=== PATIENT | male | born 1990 | race African-American/Black ===

== ENCOUNTER 2016-08-28 23:09 | Emergency (ER) | payer SELFPAY ==
[~2016-08-28] VITALS: Ht 170.2 cm; Wt 88.0 kg
[2016-08-29 00:03] VITALS: BP 141/74
== END 2016-08-29 08:36 | disposition left against medical advice (07) ==
LOC: ER 08-29 08:36
DX: R51 Headache (principal); Z53.21 Procedure and treatment not carried out due to patient leaving prior to being seen by health care provider

== ENCOUNTER 2016-09-20 21:53 | Emergency (ER) | payer SELFPAY ==
[~2016-09-20] VITALS: Ht 170.2 cm; Wt 87.0 kg
== END 2016-09-21 00:40 | disposition left against medical advice (07) ==
LOC: ER 21:53
DX: Z53.21 Procedure and treatment not carried out due to patient leaving prior to being seen by health care provider (principal)

== ENCOUNTER 2016-09-24 01:27 | Emergency (ER) | payer SELFPAY ==
[~2016-09-24] VITALS: Ht 170.2 cm; Wt 61.0 kg
[2016-09-24 01:39] VITALS: BP 134/64
== END 2016-09-24 04:33 | disposition left against medical advice (07) ==
LOC: ER 04:30
DX: Z04.3 Encounter for examination and observation following other accident (principal); Z53.21 Procedure and treatment not carried out due to patient leaving prior to being seen by health care provider
CPT/HCPCS: J7030

== ENCOUNTER 2016-09-24 05:27 | Emergency (ER) | payer MEDICAID ==
[~2016-09-24] VITALS: Ht 170.2 cm; Wt 84.0 kg
[2016-09-24] MEDS ORDERED: ONDANSETRON HCL 4MG/2ML VIAL IV STA (06:09)
[2016-09-24] MEDS ORDERED: MORPHINE SULFATE 4 MG/ML CPJ (NOT FOR IM USE) IV STA (06:09)
[2016-09-24] MEDS ORDERED: SODIUM CHLORIDE 0.9% 1,000 ML IV ONE (06:09)
[2016-09-24 06:25] LABS: BASOPHILS % 0.6 % (0.0-2.0); EOSINOPHILS % 1.3 % (0.0-5.0); HEMATOCRIT. 41.2 % (42.0-52.0); HEMOGLOBIN. 14.1 g/dL (14.0-18.0); LYMPHOCYTES % 27.3 % (20.0-50.0); MEAN CORPUSCULAR HEMOGLOBIN 29.3 pg (28.0-32.0); MEAN CORPUSCULAR HGB CONC 34.2 g/dL (31.0-37.0); MEAN CORPUSCULAR VOLUME 85.7 fL (80.0-94.0); MEAN PLATELET VOLUME 8.5 fl (7.4-10.4); MONOCYTES % 8.7 % (2.0-8.0); NEUTROPHILS % 62.1 % (40.0-76.0); PLATELET 250 x1000/uL (130-400); RED BLOOD CELL COUNT 4.81 mill/uL (4.7-6.1); RED CELL DISTRIBUTION WIDTH 13.4 % (11.6-14.6); WHITE BLOOD COUNT 7.5 x1000/uL (4.5-11.0)
[2016-09-24 06:33] LABS: INR 1.1; PARTIAL THROMBOPLASTIN TIME 26.6 sec (24.0-34.0); PROTHROMBIN TIME 11.6 sec
[2016-09-24 06:45] LABS: ALANINE AMINOTRANSFERASE 23 IU/L (13-61); ALBUMIN 4.1 g/dL (3.4-5.0); CARBON DIOXIDE 28 mEq/L (21-32); CHLORIDE 103 mEq/L (98-107); CREATINE KINASE 210 IU/L (39-308); INDEX HEMOLYSI 1 (1-3); INDEX ICTERIC 1 (1-4); INDEX LIPEMIC 1 (1-3); LIPASE 134 IU/L (73-393); TROPONIN I < 0.02 ng/mL (0.00-0.04); UREA NITROGEN BLOOD 6 mg/dL (7-21); eGFR > 60 mL/min (>60)
[2016-09-24 06:55] LABS: CLARITY URINE CLEAR (CLEAR); COLOR URINE YELLOW (YELLOW); GLUCOSE URINE NEGATIVE (NEGATIVE); KETONES URINE TRACE (NEGATIVE); LEUKOCYTE ESTERASE URINE 3+ (NEGATIVE); NITRITE URINE NEGATIVE (NEGATIVE); OCCULT BLOOD URINE NEGATIVE (NEGATIVE); PH URINE 6.5 (4.5-8.0); PROTEIN URINE NEGATIVE (NEGATIVE)
[2016-09-24 07:02] LABS: ANION GAP 11; CALCIUM 8.3 mg/dL (8.5-10.1)
[2016-09-24 07:18] LABS: SQUAMOUS EPITHELIAL CELL URINE FEW /lpf (RARE/1+)
[2016-09-24 07:24] LABS: RBC URINE 0-2 /hpf (0-2)
[2016-09-24 07:25] LABS: BACTERIA URINE NONE SEEN
[2016-09-24 07:29] VITALS: BP 128/74
[2016-09-24 08:05] LABS: *AMPHETAMINES SCREEN URINE PRESUMTIVE POSITIVE (NEGATIVE); *BARBITURATES SCREEN URINE NEGATIVE (NEGATIVE); *BENZODIAZEPINES SCREEN URINE NEGATIVE (NEGATIVE); *COCAINE SCREEN URINE NEGATIVE (NEGATIVE); CANNABINOID URINE SCREEN NEGATIVE (NEGATIVE); ECSTASY MDMA SCREEN URINE NEGATIVE (NEGATIVE); METHADONE URINE SCREEN NEGATIVE (NEGATIVE); OPIATES URINE SCREEN NEGATIVE (NEGATIVE); PHENCYCLIDINE URINE SCREEN NEGATIVE (NEGATIVE)
[2016-09-24] MEDS ORDERED: SODIUM CHLORIDE 0.9% 10ML VIAL ONE (14:42)
[2016-09-24] MEDS ORDERED: IOHEXOL-300 100 ML BOTTLE ONE (14:42)
== END 2016-09-24 08:49 | disposition home or self-care (01) ==
LOC: ER 07:09
DX: S29.8XXA Other specified injuries of thorax, initial encounter (principal); W22.8XXA Striking against or struck by other objects, initial encounter; Y93.55 Activity, bike riding; Y92.89 Other specified places as the place of occurrence of the external cause; N39.0 Urinary tract infection, site not specified; R03.0 Elevated blood-pressure reading, without diagnosis of hypertension; F12.90 Cannabis use, unspecified, uncomplicated; S36.39XA Other injury of stomach, initial encounter; S31.609A Unspecified open wound of abdominal wall, unspecified quadrant with penetration into peritoneal cavity, initial encounter; F17.210 Nicotine dependence, cigarettes, uncomplicated; J45.909 Unspecified asthma, uncomplicated
CPT/HCPCS: 36415; 71010; 71260; 74177; 80053; 80305; 81001; 82550; 82553; 83690; 84484; 85025; 85610; 85730; 93005; 96361; 96374; 96375; 99285; A4216; J2270; J2405; Q9967; J7030

== ENCOUNTER 2016-09-26 03:27 | Emergency (ER) | payer SELFPAY ==
[~2016-09-26] VITALS: Ht 170.2 cm; Wt 84.0 kg
[2016-09-26] MEDS ORDERED: IBUPROFEN 600MG TABLET PO ONE (05:30)
[2016-09-26 05:32] VITALS: BP 117/70
== END 2016-09-26 05:59 | disposition home or self-care (01) ==
LOC: ER 03:27
DX: I10 Essential (primary) hypertension (principal); Z76.0 Encounter for issue of repeat prescription; J45.909 Unspecified asthma, uncomplicated; F17.200 Nicotine dependence, unspecified, uncomplicated; F12.10 Cannabis abuse, uncomplicated
CPT/HCPCS: 99283

== ENCOUNTER 2016-10-01 21:19 | Emergency (ER) | payer SELFPAY ==
[~2016-10-01] VITALS: Ht 170.2 cm; Wt 84.0 kg
[2016-10-01 22:21] VITALS: BP 143/80
== END 2016-10-02 03:50 | disposition left against medical advice (07) ==
LOC: ER 10-02 03:42
DX: R07.89 Other chest pain (principal); J45.909 Unspecified asthma, uncomplicated; I10 Essential (primary) hypertension; F17.210 Nicotine dependence, cigarettes, uncomplicated; F12.90 Cannabis use, unspecified, uncomplicated; Z53.21 Procedure and treatment not carried out due to patient leaving prior to being seen by health care provider
CPT/HCPCS: 93005

== ENCOUNTER 2016-10-04 23:11 | Emergency (ER) | payer SELFPAY | END 2016-10-04 23:28 | disposition left against medical advice (07) | LOC: ER 23:11 | DX: R07.9 Chest pain, unspecified (principal); Z53.21 Procedure and treatment not carried out due to patient leaving prior to being seen by health care provider ==

== ENCOUNTER 2016-11-09 17:10 | Emergency (ER) | payer SELFPAY ==
[~2016-11-09] VITALS: Ht 170.2 cm; Wt 72.5 kg
[2016-11-09 17:42] VITALS: BP 142/72
== END 2016-11-10 08:05 | disposition left against medical advice (07) ==
LOC: ER 11-10 07:48
DX: Z53.21 Procedure and treatment not carried out due to patient leaving prior to being seen by health care provider (principal)

== ENCOUNTER 2016-11-14 15:45 | Emergency (ER) | payer SELFPAY ==
[~2016-11-14] VITALS: Ht 170.2 cm; Wt 82.0 kg
[2016-11-14 16:11] VITALS: BP 124/74
== END 2016-11-14 20:33 | disposition left against medical advice (07) ==
LOC: ER 15:45
DX: N50.9 Disorder of male genital organs, unspecified (principal); Z53.21 Procedure and treatment not carried out due to patient leaving prior to being seen by health care provider

== ENCOUNTER 2016-11-22 00:53 | Emergency (ER) | payer SELFPAY | END 2016-11-22 02:26 | disposition left against medical advice (07) | LOC: ER 01:59 | DX: R30.9 Painful micturition, unspecified (principal); Z53.21 Procedure and treatment not carried out due to patient leaving prior to being seen by health care provider ==

== ENCOUNTER 2016-11-23 01:57 | Emergency (ER) | payer MEDICAID ==
[~2016-11-23] VITALS: Ht 170.2 cm; Wt 84.0 kg
[2016-11-23] MEDS ORDERED: KETOROLAC 60MG/2ML VIAL IM ONE (06:45)
[2016-11-23 06:56] VITALS: BP 116/55
== END 2016-11-23 08:06 | disposition left against medical advice (07) ==
LOC: ER 01:57
DX: R30.0 Dysuria (principal); R10.31 Right lower quadrant pain; F17.200 Nicotine dependence, unspecified, uncomplicated; F12.10 Cannabis abuse, uncomplicated; I10 Essential (primary) hypertension; J45.909 Unspecified asthma, uncomplicated
CPT/HCPCS: 96372; 99284; J1885; Z7610

== ENCOUNTER 2016-11-23 21:15 | Emergency (ER) | payer MEDICAID ==
[~2016-11-23] VITALS: Ht 170.2 cm; Wt 84.0 kg
[2016-11-23 23:10] VITALS: BP 123/65
[2016-11-24 00:34] LABS: BASOPHILS % 0.7 % (0.0-2.0); EOSINOPHILS % 2.7 % (0.0-5.0); HEMATOCRIT. 40.6 % (42.0-52.0); HEMOGLOBIN. 13.9 g/dL (14.0-18.0); LYMPHOCYTES % 19.4 % (20.0-50.0); MEAN CORPUSCULAR HEMOGLOBIN 29.4 pg (28.0-32.0); MEAN CORPUSCULAR VOLUME 85.7 fL (80.0-94.0); MEAN PLATELET VOLUME 8.9 fl (7.4-10.4); MONOCYTES % 9.2 % (2.0-8.0); PLATELET 262 x1000/uL (130-400); RED BLOOD CELL COUNT 4.74 mill/uL (4.7-6.1); RED CELL DISTRIBUTION WIDTH 12.9 % (11.6-14.6)
[2016-11-24 00:35] LABS: CHLORIDE 103 mEq/L (98-107)
[2016-11-24 00:46] LABS: CARBON DIOXIDE 28 mEq/L (21-32)
[2016-11-24 01:16] LABS: CLARITY URINE CLEAR (CLEAR); COLOR URINE YELLOW (YELLOW); GLUCOSE URINE NEGATIVE (NEGATIVE); KETONES URINE TRACE (NEGATIVE); LEUKOCYTE ESTERASE URINE 2+ (NEGATIVE); NITRITE URINE NEGATIVE (NEGATIVE); OCCULT BLOOD URINE NEGATIVE (NEGATIVE); PH URINE 5.5 (4.5-8.0); PROTEIN URINE NEGATIVE (NEGATIVE)
[2016-11-24] MEDS ORDERED: CEFTRIAXONE SODIUM 250 MG/VIAL IM NR ×2 (02:00→03:15)
[2016-11-24] MEDS ORDERED: LIDOCAINE HCL 1%/EPI 1:200,000 30 ML VIAL MC NR ×2 (02:00→03:15)
[2016-11-24 02:02] LABS: *AMPHETAMINES SCREEN URINE PRESUMTIVE POSITIVE (NEGATIVE); *BARBITURATES SCREEN URINE NEGATIVE (NEGATIVE); *BENZODIAZEPINES SCREEN URINE NEGATIVE (NEGATIVE); *COCAINE SCREEN URINE NEGATIVE (NEGATIVE); CANNABINOID URINE SCREEN PRESUMTIVE POSITIVE (NEGATIVE); METHADONE URINE SCREEN NEGATIVE (NEGATIVE); PHENCYCLIDINE URINE SCREEN NEGATIVE (NEGATIVE)
[2016-11-24 02:05] LABS: OPIATES URINE SCREEN NEGATIVE (NEGATIVE)
== END 2016-11-24 02:47 | disposition home or self-care (01) ==
LOC: ER 21:15
DX: N34.2 Other urethritis (principal); R59.0 Localized enlarged lymph nodes; F17.200 Nicotine dependence, unspecified, uncomplicated; F12.10 Cannabis abuse, uncomplicated; J45.909 Unspecified asthma, uncomplicated; I10 Essential (primary) hypertension
CPT/HCPCS: 36415; 76857; 80053; 80305; 81001; 85025; 96372; 99285; J0696

== ENCOUNTER 2016-12-10 03:20 | Emergency (ER) | payer MEDICAID | END 2016-12-10 03:30 | disposition left against medical advice (07) | LOC: ER 03:20 | DX: Z53.21 Procedure and treatment not carried out due to patient leaving prior to being seen by health care provider (principal) ==

== ENCOUNTER 2016-12-11 05:45 | Emergency (ER) | payer MEDICAID ==
[~2016-12-11] VITALS: Ht 170.2 cm; Wt 84.1 kg
[2016-12-11 05:50] VITALS: BP 144/69
== END 2016-12-11 07:00 | disposition left against medical advice (07) ==
LOC: ER 05:45
DX: K59.00 Constipation, unspecified (principal); Z53.21 Procedure and treatment not carried out due to patient leaving prior to being seen by health care provider

== ENCOUNTER 2016-12-15 03:06 | Emergency (ER) | payer MEDICAID ==
[~2016-12-15] VITALS: Ht 170.2 cm; Wt 84.0 kg
[2016-12-15 03:27] VITALS: BP 132/66
== END 2016-12-16 04:43 | disposition left against medical advice (07) ==
LOC: ER 08:14
DX: Z04.8 Encounter for examination and observation for other specified reasons (principal); Z53.21 Procedure and treatment not carried out due to patient leaving prior to being seen by health care provider

== ENCOUNTER 2016-12-24 13:28 | Emergency (ER) | payer MEDICAID ==
[~2016-12-24] VITALS: Ht 170.2 cm; Wt 83.0 kg
[2016-12-24 14:28] VITALS: BP 125/80
== END 2016-12-24 17:17 | disposition left against medical advice (07) ==
LOC: ER 16:20
DX: L72.8 Other follicular cysts of the skin and subcutaneous tissue (principal); J45.909 Unspecified asthma, uncomplicated; I10 Essential (primary) hypertension; F12.10 Cannabis abuse, uncomplicated; F17.210 Nicotine dependence, cigarettes, uncomplicated
CPT/HCPCS: 99281

== ENCOUNTER 2016-12-27 22:36 | Emergency (ER) | payer MEDICAID ==
[~2016-12-27] VITALS: Ht 170.2 cm; Wt 80.0 kg
[2016-12-28] MEDS ORDERED: SODIUM CHLORIDE 0.9% 1,000 ML IV ONE (00:30)
[2016-12-28] MEDS ORDERED: KETOROLAC 30MG/ML VIAL IV STA (00:30)
[2016-12-28] MEDS ORDERED: FAMOTIDINE 20MG/2ML VIAL IV STA (00:30)
[2016-12-28] MEDS ORDERED: ONDANSETRON HCL 4MG/2ML VIAL IV STA (00:30)
[2016-12-28] MEDS ORDERED: MAGNESIUM/ALUMINUM HYDROXIDE/SIMETHICONE 30ML UDC PO STA (00:30)
[2016-12-28 00:49] LABS: CHLORIDE 103 mEq/L (98-107); EOSINOPHILS % 1.3 % (0.0-5.0); HEMATOCRIT. 43.7 % (42.0-52.0); HEMOGLOBIN. 14.7 g/dL (14.0-18.0); MEAN CORPUSCULAR HEMOGLOBIN 29.2 pg (28.0-32.0); MEAN CORPUSCULAR VOLUME 86.9 fL (80.0-94.0); MEAN PLATELET VOLUME 9.9 fl (7.4-10.4); MONOCYTES % 7.5 % (2.0-8.0); NEUTROPHILS % 74.2 % (40.0-76.0); PLATELET 245 x1000/uL (130-400); RED BLOOD CELL COUNT 5.03 mill/uL (4.7-6.1); RED CELL DISTRIBUTION WIDTH 13.3 % (11.6-14.6)
[2016-12-28 00:50] LABS: CLARITY URINE CLEAR (CLEAR); COLOR URINE YELLOW (YELLOW); GLUCOSE URINE NEGATIVE (NEGATIVE); KETONES URINE NEGATIVE (NEGATIVE); LEUKOCYTE ESTERASE URINE 3+ (NEGATIVE); NITRITE URINE NEGATIVE (NEGATIVE); OCCULT BLOOD URINE 1+ (NEGATIVE); PROTEIN URINE NEGATIVE (NEGATIVE); SPECIFIC GRAVITY URINE 1.007 (1.005-1.030); UROBILINOGEN URINE 0.2 E.U./dL (0.2-1.0)
[2016-12-28 00:59] LABS: CARBON DIOXIDE 33 mEq/L (21-32)
[2016-12-28 03:58] VITALS: BP 107/60
== END 2016-12-28 04:03 | disposition home or self-care (01) ==
LOC: ER 22:36
DX: N39.0 Urinary tract infection, site not specified (principal); R19.7 Diarrhea, unspecified; R11.2 Nausea with vomiting, unspecified
CPT/HCPCS: 36415; 80053; 81001; 83690; 85025; 96374; 96375; 99284; J1885; J2405; J3490; J7030; Z7610

== ENCOUNTER 2017-01-30 02:23 | Emergency (ER) | payer SELFPAY ==
[~2017-01-30] VITALS: Ht 175.3 cm; Wt 75.0 kg
[2017-01-30 05:25] VITALS: BP 135/69
== END 2017-01-30 07:26 | disposition left against medical advice (07) ==
LOC: ER 06:36
DX: R07.9 Chest pain, unspecified (principal); Z53.21 Procedure and treatment not carried out due to patient leaving prior to being seen by health care provider

== ENCOUNTER 2017-04-04 09:50 | Emergency (ER) | payer SELFPAY ==
[~2017-04-04] VITALS: Ht 170.2 cm; Wt 82.0 kg
[2017-04-04 10:04] VITALS: BP 151/80
== END 2017-04-04 11:15 | disposition left against medical advice (07) ==
LOC: ER 09:50
DX: M54.5 Low back pain (principal); Z53.21 Procedure and treatment not carried out due to patient leaving prior to being seen by health care provider; J45.909 Unspecified asthma, uncomplicated; F17.200 Nicotine dependence, unspecified, uncomplicated; F12.10 Cannabis abuse, uncomplicated

== ENCOUNTER 2017-09-04 10:46 | Emergency (ER) | payer MEDICAID ==
[~2017-09-04] VITALS: Ht 172.7 cm; Wt 86.0 kg
[2017-09-04 10:53] VITALS: BP 131/62
== END 2017-09-04 11:50 | disposition left against medical advice (07) ==
LOC: ER 11:26
DX: R20.0 Anesthesia of skin (principal); H53.8 Other visual disturbances; J45.909 Unspecified asthma, uncomplicated; I10 Essential (primary) hypertension; F17.210 Nicotine dependence, cigarettes, uncomplicated; F12.10 Cannabis abuse, uncomplicated
CPT/HCPCS: 99281

== ENCOUNTER 2019-02-18 16:03 | Emergency (ER) | payer MEDICAID ==
[~2019-02-18] VITALS: Ht 170.2 cm; Wt 84.0 kg
[2019-02-18 16:08] VITALS: BP 125/79
== END 2019-02-18 17:56 | disposition left against medical advice (07) ==
LOC: ER 17:04
DX: Z53.21 Procedure and treatment not carried out due to patient leaving prior to being seen by health care provider (principal)

== ENCOUNTER 2020-03-12 02:40 | Emergency (ER) | payer MEDICAID ==
[~2020-03-12] VITALS: Ht 172.7 cm; Wt 95.0 kg
[2020-03-12] MEDS ORDERED: IBUPROFEN 600MG TABLET PO ONE (03:00)
[2020-03-12] MEDS ORDERED: BACITRACIN ZINC OINT UDPKT TOP ONE (03:00)
[2020-03-12] MEDS ORDERED: TETANUS, DIPHTHERIA, PERTUSSIS VAC/PF 0.5ML (>7YR OLD) IM ONE (03:00)
[2020-03-12 04:28] VITALS: BP 133/78
== END 2020-03-12 04:33 | disposition home or self-care (01) ==
LOC: ER 02:40
DX: S09.8XXA Other specified injuries of head, initial encounter (principal); S50.311A Abrasion of right elbow, initial encounter; I10 Essential (primary) hypertension; J45.909 Unspecified asthma, uncomplicated; V23.4XXA Motorcycle driver injured in collision with car, pick-up truck or van in traffic accident, initial encounter; Y93.89 Activity, other specified; Y92.488 Other paved roadways as the place of occurrence of the external cause
CPT/HCPCS: 73080; 73560; 90471; 90715; 93005; 99285

== ENCOUNTER 2021-07-13 21:59 | Emergency (ER) | payer MEDICAID, OTHER ==
[~2021-07-13] VITALS: Ht 172.7 cm; Wt 88.0 kg
[2021-07-13 22:17] VITALS: BP 126/72
== END 2021-07-13 23:43 | disposition left against medical advice (07) ==
LOC: ER 21:59
DX: Z53.21 Procedure and treatment not carried out due to patient leaving prior to being seen by health care provider (principal)
CPT/HCPCS: 93005

== ENCOUNTER 2022-09-01 21:56 | Emergency (ER) | payer OTHER ==
[~2022-09-01] VITALS: Ht 172.7 cm; Wt 88.8 kg
[2022-09-01 21:59] VITALS: BP 112/73
== END 2022-09-02 02:10 | disposition home or self-care (01) ==
LOC: ER 23:11
DX: R07.9 Chest pain, unspecified (principal); J45.909 Unspecified asthma, uncomplicated; I10 Essential (primary) hypertension
CPT/HCPCS: 71045; 93005; 99283

== ENCOUNTER 2023-11-12 05:39 | Emergency (ER) | payer OTHER ==
[~2023-11-12] VITALS: Ht 172.7 cm; Wt 86.0 kg
[~2023-11-12 05:39] MED LIST: AMOX1TAB16 MT; SULF1TAB48 MT
[2023-11-12 06:24] VITALS: BP 147/80; PULSE 92; RESP 16; TEMP 98; O2SAT 99
== END 2023-11-12 07:06 | disposition left against medical advice (07) ==
LOC: ER 05:58
DX: M25.561 Pain in right knee (principal); Z53.21 Procedure and treatment not carried out due to patient leaving prior to being seen by health care provider

== ENCOUNTER 2024-04-29 11:23 | Emergency (ER) | payer MEDICAID ==
[~2024-04-29] VITALS: Ht 172.7 cm; Wt 89.0 kg
[2024-04-29 11:27] VITALS: TEMP 98.8; O2SAT 98
[2024-04-29 11:37] VITALS: O2SAT 100
[2024-04-29 12:52] VITALS: BP 125/67; PULSE 97; RESP 16
[2024-04-29] MEDS: HYDROCODONE/ACETAMINOPHEN 5/325MG TABLET PO STA (12:52)
[2024-04-29] MEDS: ONDANSETRON 4MG ODT PO STA (12:52)
[2024-04-29 13:00] LABS: BASOPHILS % 0.4 % (0.0-2.0); EOSINOPHILS % 1.1 % (0.0-5.0); HEMOGLOBIN. 15.3 g/dL (14.0-18.0); LYMPHOCYTES % 14.3 % (20.0-50.0); MEAN CORPUSCULAR HEMOGLOBIN 29.6 pg (28.0-32.0); MEAN CORPUSCULAR HGB CONC 33.2 g/dL (31.0-37.0); MEAN PLATELET VOLUME 8.9 fl (7.4-10.4); MONOCYTES % 10.4 % (2.0-8.0); NEUTROPHILS % 73.8 % (40.0-76.0); PLATELET 294 x1000/uL (130-400); RED BLOOD CELL COUNT 5.17 mill/uL (4.7-6.1); RED CELL DISTRIBUTION WIDTH 13.2 % (11.6-14.6); WHITE BLOOD COUNT 12.3 x1000/uL (4.5-11.0)
[2024-04-29 13:03] LABS: CHLORIDE 103 mEq/L (98-107); POTASSIUM 3.8 mEq/L (3.5-5.1); SODIUM 139 mEq/L (136-145)
[2024-04-29 13:04] LABS: CALCIUM 9.9 mg/dL (8.7-10.4); CARBON DIOXIDE 30 mEq/L (21-32)
[2024-04-29 13:09] LABS: GLUCOSE 107 mg/dL (70-105); UREA NITROGEN BLOOD 8 mg/dL (9-23)
[2024-04-29 13:56] LABS: PROTHROMBIN TIME 10.7 sec (9.6-11.0)
[2024-04-29 16:10] LABS: CLARITY URINE CLOUDY (CLEAR); COLOR URINE DARK YELLOW (YELLOW); GLUCOSE URINE NEGATIVE (NEGATIVE); KETONES URINE TRACE (NEGATIVE); LEUKOCYTE ESTERASE URINE 2+ (NEGATIVE); NITRITE URINE NEGATIVE (NEGATIVE); OCCULT BLOOD URINE NEGATIVE (NEGATIVE); PROTEIN URINE 1+ (NEGATIVE); SPECIFIC GRAVITY URINE 1.029 (1.005-1.030)
[2024-04-29 16:43] LABS: BACTERIA URINE 2+; RBC URINE 0-2 /hpf (0-2); SQUAMOUS EPITHELIAL CELL URINE 1+ /lpf (RARE/1+); WBC URINE 15-25 /hpf (0-2)
[2024-04-29] MEDS ORDERED: CIPR500T5 MT (16:52)
[2024-04-29] MEDS ORDERED: IBUP-2029 MT (16:52)
== END 2024-04-29 17:10 | disposition home or self-care (01) ==
LOC: ER 11:23
DX: N39.0 Urinary tract infection, site not specified (principal); N43.3 Hydrocele, unspecified; J45.909 Unspecified asthma, uncomplicated; I10 Essential (primary) hypertension; F19.90 Other psychoactive substance use, unspecified, uncomplicated
CPT/HCPCS: 99284; 74176; 93976; 80048; 81003; 83690; 85025; 85610; 87086; 36415; 76870; Q0162